=== PATIENT | male | born 1975 | race Caucasian/White ===

== ENCOUNTER 2021-09-17 12:28 | Outpatient (CLI) | payer OTHER, SELFPAY ==
[2021-09-17 12:50] LABS: Basophils Absolute Auto 0.02 K/uL (0.00-0.30); Basophils Percent Auto 0.2 % (0.0-3.0); Eosinophils Absolute Auto 0.12 K/uL (0.00-0.50); Eosinophils Percent Auto 1.5 % (0.0-7.0); Hematocrit 44.2 % (37.0-53.0); Hemoglobin* 15.4 gm/dL (13.5-17.5); Immature Granulocytes Abs Auto 0.01 K/uL (0.00-0.30); Lymphocytes Absolute Auto 2.92 K/uL (0.90-2.90); Lymphocytes Percent Auto 35.6 % (20-44); Mean Corpuscular HGB Conc 35 gm/dL (32-36); Mean Corpuscular Hemoglobin 30 pg (26-34); Mean Corpuscular Volume 86 fL (80-100); Monocytes Percent Auto 6.1 % (0.0-11.0); Neutrophils Absolute Auto 4.63 K/uL (1.7-7.0); Neutrophils Percent Auto 56.5 % (42.0-72.0); Platelet Count* 207 K/uL (140-440); RDW Coefficient of Variation % 11.7 % (11.5-15.5); Red Blood Count 5.15 m/uL (4.30-5.90)
[2021-09-17 12:55] LABS: Slide Review Reflex No
[2021-09-17 13:19] LABS: Albumin* 4.5 g/dL (3.3-5.0)
[2021-09-17 13:20] LABS: Chloride* 105 mmol/L (96-114); Potassium* 4.3 mmol/L (3.6-5.1); Sodium* 138 mmol/L (135-149)
[2021-09-17 13:22] LABS: Aspartate Amino Transferase* 51 U/L (12-35); Bilirubin Total* 0.7 mg/dL (0.1-1.5); Carbon Dioxide* 26 mmol/L (20-32); Creatinine* 0.9 mg/dL (0.5-1.5); Estimated Glomerular Filt Rate 107 ml/min; Total Protein* 7.4 g/dL (6.0-8.3)
[2021-09-17 13:23] LABS: Alanine Aminotransferase* 47 U/L (4-50); Alkaline Phosphatase* 83 U/L (40-150); Blood Urea Nitrogen* 16 mg/dL (5-24); Calcium* 9.3 mg/dL (8.4-10.6); Glucose* 208 mg/dL (60-115)
[2021-09-18 10:20] LABS: Carcinoembryonic Antigen 2.5 ng/mL (<=3.8)
== END 2021-09-17 12:29 | disposition home or self-care (01) ==
PROVIDERS: Visit Provider Internal Medicine Hematology & Oncology
DX: Z01.818 Encounter for other preprocedural examination (principal)
CPT/HCPCS: 36415; 80053; 82378; 85025

== ENCOUNTER 2021-11-26 09:19 | Outpatient (CLI) | payer OTHER, SELFPAY ==
[2021-11-26 14:07] LABS: Cholesterol* 159 mg/dL (90-199); HDL Cholesterol* 24 mg/dL (>=40); LDL Cholesterol Calculated 86 mg/dL (<100); Triglycerides* 244 mg/dL (40-149)
== END 2021-11-26 09:20 | disposition home or self-care (01) ==
LOC: LONREF 09:22
PROVIDERS: PCP Family Medicine; Visit Provider Family Medicine
DX: E78.5 Hyperlipidemia, unspecified (principal)
CPT/HCPCS: 80061

== ENCOUNTER 2021-12-13 07:57 | Outpatient (CLI) | payer OTHER, SELFPAY ==
--- NOTE | 2021-12-13 09:45 | CRLHL7_ITS ---
For Patients: As a result of the Cures Act, medical imaging exams and procedure reports are released immediately into your electronic medical record. You may view this report before your referring provider. If you have questions, please contact your health care provider. Indication: Non-pressure chronic ulcer Technique: Three views right great toe Comparison: None Findings: No cortical destruction or periostitis. No fracture. Mild degenerative changes. No soft tissue gas. Impression: No evidence of osteomyelitis. Dictated by Martin Sheffield MD @ 12/13/2021 10:15:01 AM (Electronically Signed)
== END 2021-12-13 07:58 | disposition home or self-care (01) ==
PROVIDERS: PCP Family Medicine; Visit Provider Nurse Practitioner Family
DX: E11.621 Type 2 diabetes mellitus with foot ulcer (principal); L97.512 Non-pressure chronic ulcer of other part of right foot with fat layer exposed; M14.671 Charcot's joint, right ankle and foot; B35.1 Tinea unguium; L60.3 Nail dystrophy; Z79.4 Long term (current) use of insulin; Z79.84 Long term (current) use of oral hypoglycemic drugs
CPT/HCPCS: 11042; 11720; 11750; 73660; 99213

== ENCOUNTER 2021-12-27 07:26 | Outpatient (CLI) | payer OTHER, SELFPAY ==
[2021-12-27 08:00] LABS: Basophils Absolute Auto 0.02 K/uL (0.00-0.30); Basophils Percent Auto 0.2 % (0.0-3.0); Eosinophils Absolute Auto 0.21 K/uL (0.00-0.50); Eosinophils Percent Auto 2.5 % (0.0-7.0); Hematocrit 45.9 % (37.0-53.0); Hemoglobin* 15.6 gm/dL (13.5-17.5); Immature Granulocytes Abs Auto 0.01 K/uL (0.00-0.30); Lymphocytes Absolute Auto 3.16 K/uL (0.90-2.90); Lymphocytes Percent Auto 37.6 % (20-44); Mean Corpuscular HGB Conc 34 gm/dL (32-36); Mean Corpuscular Hemoglobin 29 pg (26-34); Mean Corpuscular Volume 85 fL (80-100); Monocytes Percent Auto 7.8 % (0.0-11.0); Neutrophils Absolute Auto 4.35 K/uL (1.7-7.0); Neutrophils Percent Auto 51.8 % (42.0-72.0); Platelet Count* 205 K/uL (140-440); RDW Coefficient of Variation % 12.7 % (11.5-15.5); Red Blood Count 5.41 m/uL (4.30-5.90); White Blood Count* 8.41 K/uL (4.50-11.00)
[2021-12-27 08:01] LABS: Slide Review Reflex No
[2021-12-28 13:47] LABS: Carcinoembryonic Antigen 1.7 ng/mL (<=3.8)
== END 2021-12-27 07:27 | disposition home or self-care (01) ==
LOC: LAB 07:29
PROVIDERS: PCP Family Medicine
DX: C18.7 Malignant neoplasm of sigmoid colon (principal)
CPT/HCPCS: 36415; 82378; 85025

== ENCOUNTER 2021-12-27 07:57 | Outpatient (CLI) | payer OTHER, SELFPAY | END 2021-12-27 07:58 | disposition home or self-care (01) | PROVIDERS: PCP Family Medicine; Visit Provider Nurse Practitioner Family | DX: E11.621 Type 2 diabetes mellitus with foot ulcer (principal); L97.512 Non-pressure chronic ulcer of other part of right foot with fat layer exposed; M14.671 Charcot's joint, right ankle and foot; Z79.4 Long term (current) use of insulin; Z79.84 Long term (current) use of oral hypoglycemic drugs | CPT/HCPCS: 11042 ==

== ENCOUNTER 2022-01-17 12:46 | Outpatient (CLI) | payer OTHER, SELFPAY | END 2022-01-17 12:47 | disposition home or self-care (01) | LOC: WOUND 12:47 | PROVIDERS: PCP Family Medicine; Visit Provider Nurse Practitioner Family | DX: E11.621 Type 2 diabetes mellitus with foot ulcer (principal); L97.512 Non-pressure chronic ulcer of other part of right foot with fat layer exposed; M14.671 Charcot's joint, right ankle and foot; Z79.4 Long term (current) use of insulin; Z79.84 Long term (current) use of oral hypoglycemic drugs | CPT/HCPCS: 97597 ==

== ENCOUNTER 2022-01-29 14:34 | Outpatient (CLI) | payer OTHER, SELFPAY | END 2022-01-29 14:35 | disposition home or self-care (01) | LOC: WOUND 14:34 | PROVIDERS: PCP Family Medicine; Visit Provider Nurse Practitioner Family | DX: E11.621 Type 2 diabetes mellitus with foot ulcer (principal); L97.512 Non-pressure chronic ulcer of other part of right foot with fat layer exposed; M14.671 Charcot's joint, right ankle and foot; Z79.4 Long term (current) use of insulin; Z79.84 Long term (current) use of oral hypoglycemic drugs | CPT/HCPCS: 97602; 99213 ==

== ENCOUNTER 2022-05-29 09:24 | Outpatient (CLI) | payer OTHER, SELFPAY ==
[2022-05-29 09:48] LABS: Basophils Absolute Auto 0.03 K/uL (0.00-0.30); Basophils Percent Auto 0.4 % (0.0-3.0); Eosinophils Percent Auto 3.5 % (0.0-7.0); Hematocrit 48.3 % (37.0-53.0); Hemoglobin* 16.8 gm/dL (13.5-17.5); Immature Granulocytes Abs Auto 0.02 K/uL (0.00-0.30); Immature Granulocytes Pct Auto 0.2 %; Lymphocytes Percent Auto 32.7 % (20-44); Mean Corpuscular HGB Conc 35 gm/dL (32-36); Mean Corpuscular Hemoglobin 29 pg (26-34); Mean Corpuscular Volume 84 fL (80-100); Neutrophils Absolute Auto 4.82 K/uL (1.7-7.0); Neutrophils Percent Auto 56.2 % (42.0-72.0); Platelet Count* 212 K/uL (140-440); RDW Coefficient of Variation % 12.9 % (11.5-15.5); Red Blood Count 5.76 m/uL (4.30-5.90); White Blood Count* 8.57 K/uL (4.50-11.00)
[2022-05-29 09:55] LABS: Slide Review Reflex No
[2022-05-29 10:10] LABS: Albumin* 4.4 g/dL (3.3-5.0)
[2022-05-29 10:11] LABS: Chloride* 104 mmol/L (96-114); Potassium* 4.8 mmol/L (3.6-5.1); Sodium* 139 mmol/L (135-149)
[2022-05-29 10:12] LABS: Hemoglobin A1C* 7.77 % (0-5.6)
[2022-05-29 10:13] LABS: Bilirubin Total* 0.5 mg/dL (0.1-1.5); Estimated Glomerular Filt Rate 93 ml/min
[2022-05-29 10:14] LABS: Alanine Aminotransferase* 40 U/L (4-50); Alkaline Phosphatase* 71 U/L (40-150); Aspartate Amino Transferase* 35 U/L (12-35); Blood Urea Nitrogen* 14 mg/dL (5-24); Calcium* 9.2 mg/dL (8.4-10.6); Carbon Dioxide* 30 mmol/L (20-32); Glucose* 183 mg/dL (60-115); Total Protein* 7.3 g/dL (6.0-8.3)
[2022-05-30 22:34] LABS: Carcinoembryonic Antigen 2.2 ng/mL (<=3.8)
== END 2022-05-29 09:25 | disposition home or self-care (01) ==
PROVIDERS: PCP Family Medicine; Visit Provider Internal Medicine Hematology & Oncology
DX: C18.7 Malignant neoplasm of sigmoid colon (principal); E13.9 Other specified diabetes mellitus without complications
CPT/HCPCS: 36415; 80053; 82378; 83036; 85025

== ENCOUNTER 2022-09-24 10:44 | Outpatient (CLI) | payer OTHER, SELFPAY | END 2022-09-24 10:45 | disposition home or self-care (01) | LOC: LONREF 10:45 | PROVIDERS: PCP Family Medicine; Visit Provider Family Medicine | DX: E78.5 Hyperlipidemia, unspecified (principal); E13.9 Other specified diabetes mellitus without complications | CPT/HCPCS: 80061 ==

== ENCOUNTER 2023-01-14 07:55 | Outpatient (CLI) | payer OTHER, SELFPAY | END 2023-01-14 07:56 | disposition home or self-care (01) | PROVIDERS: PCP Family Medicine; Visit Provider Family Medicine | DX: E78.5 Hyperlipidemia, unspecified (principal); E13.9 Other specified diabetes mellitus without complications; C18.9 Malignant neoplasm of colon, unspecified | CPT/HCPCS: 80053; 80061; 82378 ==

== ENCOUNTER 2023-03-13 10:22 | Outpatient (CLI) | payer OTHER, SELFPAY ==
--- NOTE | 2023-03-13 11:00 | CRLHL7_ITS ---
For Patients: As a result of the 21st Century Cures Act, medical imaging exams and procedure reports are released immediately into your electronic medical record. You may view this report before your referring provider. If you have questions, please contact your health care provider. INDICATION: Colon cancer TECHNIQUE: Volumetric helical scanning of the chest, abdomen and pelvis was performed with 98 cc of Isovue 370 contrast material IV. Coronal and sagittal reconstructions were obtained. COMPARISON: Abdomen/pelvis CT of 02/15/2020 FINDINGS: CHEST: No pulmonary nodule is evident. A patchy ground-glass infiltrate is demonstrated in the anterior right upper lobe. The lungs are otherwise clear. No airway abnormality is noted. No pleural effusion is demonstrated. No axillary, mediastinal or hilar adenopathy is apparent. A roughly 3.5 cm inferior left thyroid lobe nodule is demonstrated. The heart is normal in size. ABDOMEN/PELVIS: Postop changes of partial left colon resection are demonstrated. No recurrent mass is noted. No mesenteric, retroperitoneal or pelvic lymphadenopathy is demonstrated. A len hepatis lymph node with short axis measurements of 1.8 cm is noted on image 161 of series 2 and on the previous exam and a short axis measurement of 2.1 cm. No peritoneal implant or free intraperitoneal fluid is noted. The bowel is otherwise unremarkable except for colonic diverticulosis. The liver is normal in size and shape. There appears to be fatty change in the liver. An unchanged subcentimeter low hypoattenuation lesion in the inferior right hepatic lobe on image 188 of series 2 presumably represents a cyst. The bile ducts are within normal limits. No lymphadenopathy is evident. No free fluid is demonstrated. The spleen, adrenal glands and pancreas are negative. The kidneys are unremarkable. Mild prostate enlargement is noted. No lytic or blastic bone lesion is identified. IMPRESSION: : 1. Partial left colon resection. No evidence of recurrent/metastatic disease. 2. Len hepatis lymph node with short axis measurement of 1.8 cm as opposed to 2.1 cm previously. 3. Patchy ground-glass infiltrate in the anterior right upper lobe. 4. Roughly 3 cm inferior left thyroid lobe nodule. Ultrasound suggested, if not performed previously. 5. Mild fatty change in the liver have presumed subcentimeter inferior right lobe cyst which is unchanged. 6. Mild prostate enlargement. Please note that all CT scans at this facility use dose modulation, iterative reconstruction, and/or weight-based dosing when appropriate to reduce radiation dose to as low as reasonably achievable. Dictated by Christiano Mead MD @ 03/14/2023 9:18:37 AM (Electronically Signed)
[2023-03-13 11:07] LABS: Estimated Glomerular Filt Rate 93 ml/min
== END 2023-03-13 10:23 | disposition home or self-care (01) ==
LOC: CT 10:22
PROVIDERS: PCP Family Medicine; Visit Provider Internal Medicine Hematology & Oncology
DX: C18.7 Malignant neoplasm of sigmoid colon (principal); E04.1 Nontoxic single thyroid nodule; N40.0 Benign prostatic hyperplasia without lower urinary tract symptoms; K76.0 Fatty (change of) liver, not elsewhere classified
CPT/HCPCS: 36415; 71260; 74177; 82565; Q9967

== ENCOUNTER 2023-09-03 08:17 | Outpatient (CLI) | payer OTHER, SELFPAY | END 2023-09-03 08:18 | disposition home or self-care (01) | PROVIDERS: PCP Family Medicine; Visit Provider Family Medicine | DX: E13.9 Other specified diabetes mellitus without complications (principal); E78.5 Hyperlipidemia, unspecified; Z12.5 Encounter for screening for malignant neoplasm of prostate | CPT/HCPCS: 80061; G0103 ==